=== PATIENT | male | born 1960 | race Caucasian/White ===

== ENCOUNTER 2021-01-11 23:22 | Emergency (ER) | payer BC ==
[~2021-01-11] VITALS: Ht 175.3 cm; Wt 90.9 kg
[2021-01-12 01:21] VITALS: BP 151/89; PULSE 85; TEMP 98
== END 2021-01-12 01:21 | disposition home or self-care (01) ==
LOC: COL.ER 23:22
DX: S61.051A Open bite of right thumb without damage to nail, initial encounter (principal); W59.11XA Bitten by nonvenomous snake, initial encounter

== ENCOUNTER 2022-03-27 21:09 | Emergency (ER) | payer BC ==
[~2022-03-27] VITALS: Ht 175.3 cm; Wt 95.5 kg
[2022-03-27 21:40] VITALS: BP 134/81; TEMP 98.6
[2022-03-27] MEDS ORDERED: BACTRIM DS 8001 TAB PO (21:56)
[2022-03-27] MEDS ORDERED: CEPHALEXIN500 M1 PO (21:56)
[2022-03-27 22:37] VITALS: PULSE 77
== END 2022-03-27 22:37 | disposition home or self-care (01) ==
LOC: COL.ER 21:09
DX: L03.113 Cellulitis of right upper limb (principal); Z28.310 Unvaccinated for COVID-19
CPT/HCPCS: J0696; J1100

== ENCOUNTER 2022-03-31 08:58 | Emergency (ER) | payer BC ==
[~2022-03-31] VITALS: Ht 177.8 cm; Wt 118.2 kg
[~2022-03-31 08:58] MED LIST: BACTRIM DS 8001 TAB PO; CEPHALEXIN500 M1 PO
[2022-03-31 09:36] VITALS: TEMP 98.1
[2022-03-31] MEDS ORDERED: TRIAMCINOLONE A15 G3 TP (10:36)
[2022-03-31 11:20] VITALS: BP 137/86; PULSE 70
== END 2022-03-31 11:21 | disposition home or self-care (01) ==
LOC: COL.ER 08:58
DX: S50.861A Insect bite (nonvenomous) of right forearm, initial encounter (principal); Z28.310 Unvaccinated for COVID-19; W57.XXXA Bitten or stung by nonvenomous insect and other nonvenomous arthropods, initial encounter